=== PATIENT | male | born 1955 | race Caucasian/White ===

== ENCOUNTER → 2025-03-07 | Outpatient (CLI) | payer MEDICARE, BC, SELFPAY ==
--- NOTE | 2025-03-07 09:30 | XR_ITS ---
Examination: Abdomen sonogram, Limited Date and time of exam: March 07, 2025, 0926 hours INDICATIONS: Diagnosis cirrhosis, chronic abdominal pain Technique: Real-time couch scale transabdominal sonographic images of the upper abdomen obtained. Findings: Absent gallbladder Common bile duct 0.2 cm Pancreatic head 2.8 cm Cyst in the pancreatic head 13 mm Liver 15.3 cm fatty infiltration no focal liver lesions Normal hepatopetal portal venous flow Patent IVC IMPRESSION: Recommend MRI abdomen pre and postcontrast to assess cystic mass in the pancreas, 13 x 11 x 10 mm
== END | disposition home or self-care (01) ==
PROVIDERS: PCP Family Medicine; Referring Provider Internal Medicine Gastroenterology; Visit Provider Internal Medicine Gastroenterology
DX: K86.2 Cyst of pancreas (principal)
CPT/HCPCS: 76705